=== PATIENT | female | born 1960 | race Caucasian/White ===

== ENCOUNTER → 2017-11-11 | Outpatient (CLI) | payer MEDICARE ==
--- NOTE | 2017-11-12 08:01 | XCELERA REPORT ---
[address] [address] Lower Extremity Venous Evaluation Name: HARDEEP TAYLOR Age: 57 yrs Gender: Female : 1960 Patient Status: Outpatient Patient Location: Study Date: 11/11/2017 01:27 PM Procedure: Color flow and duplex imaging of the veins of the left lower extremity as well as the right Common Femoral vein. Reason For Study: LLE PAIN Ordering Physician: WICHO AGGARWAL PA-C Performed By: Becca Prather Right Sided Venous Evaluation The right common femoral vein is fully compressible. Spontaneous and phasic flow is present in the right common femoral vein. Left Sided Venous Evaluation Normal vessel filling wall to wall, compression and augmentation as well as Colour flow down to the infrageniculate veins. Interpretation Summary No duplex evidence of DVT or obstruction in the left lower extremity nor in the right Common Femoral vein. : WICHO AGGARWAL PA-C > Thor Rivas
== END ==
LOC: SP 13:04
PROVIDERS: ATTEND Physician Assistant
DX: M79.605 Pain in left leg (principal)
CPT/HCPCS: 93971

== ENCOUNTER 2019-11-30 21:50 | Emergency (ER) | payer MEDICARE ==
--- NOTE | 2019-11-30 23:01 | ER Document Report ---
HPI - HPI Patient complains to provider of: right wrist pain Time Seen by Provider: 11/30/19 22:23 Onset: This evening Onset/Duration: Sudden Quality of pain: Achy Pain Level: 2 Context: 59-year-old female presents emergency department with complaints of right wrist pain. Patient reports she was hurrying to go the bathroom when she fell and hit her wrist. She reports she is placed ice on it since that time but still hurting with some swelling noted. She is right-handed. No other complaints such as fever vomiting diarrhea. Associated Symptoms: None Exacerbated by: Movement Relieved by: Denies Similar symptoms previously: No Recently seen / treated by doctor: No - CONSTITUTIONAL Constitutional: DENIES: Fever, Chills - REPRODUCTIVE Reproductive: DENIES: : - MUSCULOSKELETAL Musculoskeletal: REPORTS: Extremity pain - rt arm pain Past Medical History - General Information source: Patient - Social History Smoking Status: Never Smoker Chew tobacco use (# tins/day): No Frequency of alcohol use: Rare Drug Abuse: None Lives with: Family Family History: Reviewed & Not Pertinent Patient has homicidal ideation: No - Past Medical History Cardiac Medical History: Reports: Hx Hypertension Pulmonary Medical History: Reports: Hx Asthma Past Surgical History: Reports: Hx Cholecystectomy, Hx Gastric Bypass Surgery, Hx Hysterectomy - Immunizations Hx Diphtheria, Pertussis, Tetanus Vaccination: Yes Hx Pneumococcal Vaccination: 04/02/11 Vertical Provider Document - CONSTITUTIONAL Agree With Documented VS: Yes Exam Limitations: No Limitations General Appearance: WD/WN, No Apparent Distress - INFECTION CONTROL TRAVEL OUTSIDE OF THE [place] IN LAST 30 DAYS: No - HEENT HEENT: Atraumatic, Normocephalic - NECK Neck: Supple - RESPIRATORY Respiratory: No Respiratory Distress - CARDIOVASCULAR Cardiovascular: Regular Rate - MUSCULOSKELETAL/EXTREMETIES Musculoskeletal/Extremeties: MAEW, FROM, Tender - Right volar wrist tender to palpate with some swelling radial pulse +3 cap refill<2 seconds - NEURO Level of Consciousness: Awake, Alert, Appropriate Motor/Sensory: No Motor Deficit - DERM Integumentary: Warm, Dry Course - Re-evaluation Re-evalutation: Wrist X-Ray 11/30/19 22:26 IMPRESSION: Cortical irregularity along the dorsal cortex of the radius concerning for nondisplaced fracture 11/30/19 23:52 Patient instructed on nondisplaced fracture. She was placed in a volar splint and sling. She was instructed on the importance of follow-up with orthopedics. She was instructed they may take another second x-ray once the swelling goes down. Patient was offered pain medication reports she will take Tylenol. Patient reports she has an orthopedic [facility] and will follow-up with them. - Vital Signs Vital signs: Temp Pulse Resp BP Pulse Ox 98.2 F 86 16 199/119 H 100 11/30/19 22:21 11/30/19 21:56 11/30/19 21:56 11/30/19 21:56 11/30/19 21:56 - Diagnostic Test Radiology reviewed: Image reviewed, Reports reviewed Procedures - Immobilization Right Wrist Immobilizer type: Volar splint, Sling Performed by: PCT Post-Proc Neuro Vasc Exam: Unchanged from pre-exam Alignment checked and good: Yes Discharge - Discharge Clinical Impression: Right wrist pain Radial fracture Qualifiers: Encounter type: initial encounter Radius location: shaft Fracture type: closed Fracture morphology: unspecified fracture morphology Laterality: right Qualified Code(s): S52.301A - Unspecified fracture of shaft of right radius, initial encounter for closed fracture Condition: Stable Disposition: HOME, SELF-CARE Instructions: Acetaminophen, Fractured Radius ([facility]), Ice & Elevation ([facility]), Sling to be Used ([facility]), Splint Pending Casting ([facility]) Additional Instructions: *You have been evaluated for right wrist pain, radius fracture *Maintain the splint *Rest/Ice/Elevate your wrist *Follow up with your orthopedic within 1 week *Take tylenol as indicated for pain *Return to the emergency department for worsening symptoms, concerns Monitor your blood pressure. Your blood pressure was elevated today. This may be because you were anxious, in pain or because you need medication. It is important to follow up with your primary care provider for full evaluation. Forms: Elevated Blood Pressure Referrals: ASHKAN COONEY MD [Primary Care Provider] - Follow up in 3-5 days
--- NOTE | 2019-11-30 23:05 | RADIOLOGY REPORT (SQ) ---
EXAM DESCRIPTION: CLINICAL HISTORY: 59 years ,Female fell, swellling pain COMPARISON: None. TECHNIQUE: RIGHT wrist, Three view FINDINGS: There is cortical irregularity along the dorsal surface of the radius concerning for nondisplaced fracture. There is associated soft tissue swelling. This is seen only in the lateral projection. IMPRESSION: Cortical irregularity along the dorsal cortex of the radius concerning for nondisplaced fracture
[2019-12-01 00:02] VITALS: BP 157/96
== END 2019-12-01 00:11 | disposition home or self-care (01) ==
LOC: ER 21:50
DX: S52.301A Unspecified fracture of shaft of right radius, initial encounter for closed fracture (principal); M25.531 Pain in right wrist; W19.XXXA Unspecified fall, initial encounter; Y93.89 Activity, other specified; Y92.009 Unspecified place in unspecified non-institutional (private) residence as the place of occurrence of the external cause; I10 Essential (primary) hypertension; J45.909 Unspecified asthma, uncomplicated; Z98.84 Bariatric surgery status
CPT/HCPCS: 99283